=== PATIENT | female | born 1970 | race Caucasian/White ===

== ENCOUNTER 2018-03-24 05:10 | Emergency (ER) | payer BC ==
[~2018-03-24] VITALS: Ht 170.2 cm; Wt 72.0 kg
[2018-03-24 05:13] VITALS: BP 148/89; PULSE 98; RESP 16; TEMP 97.6; O2SAT 100
[2018-03-24] MEDS ORDERED: CLON.5 PO (05:40)
[2018-03-24] MEDS ORDERED: LEVO112T2 PO (05:40)
[2018-03-24] MEDS ORDERED: ADDE15TA PO (05:40)
[2018-03-24] MEDS ORDERED: METO25TA3 PO (05:40)
[2018-03-24] MEDS ORDERED: CYMB60CA PO (05:42)
[2018-03-24] MEDS ORDERED: MONT10TA2 PO (05:42)
[2018-03-24] MEDS ORDERED: LIPI20TA PO (05:42)
--- NOTE | 2018-03-24 06:01 | PD ---
HPI Chief Complaint: Injury Time Seen by Provider: 05:25 Travel History International Travel<30 days: No Contact w/Intl Traveler<30days: No Traveled to known affect area: No History of Present Illness HPI The patient is a 47 year old female who presents to the [facility] emergency department with a history of right-sided upper back pain that she reports began after she fell 2 weeks ago 20 feet off of a ladder. The patient went to a trauma facility regarding her injuries and had CAT scans done the head , neck, thorax, abdomen and pelvis as well as her spine. The patient was diagnosed with a right posterior rib fracture. The patient was discharged home with a prescription for Percocet. She reports that she later developed some right shoulder pain and went back for imaging of the right shoulder which she was told was unremarkable. The patient had Flexeril added to her medication regimen. The patient reports that 3 days ago she had increased pain again in her back that starts in the right side of her thorax and radiates to the right anterior chest. She reports that it is at times worse with taking a deep breath , lifting her arms above her head, or bending forward. The patient is currently visiting the area from [place]. She drove all day to get to [place] for previously scheduled vacation on . The patient reports that she does smoke cigarettes. She reports that she smokes 10 cigarettes per week and also vapes. She denies having any significant shortness of breath other than when she has these intermittent sharp pains which catch her breath. She reports that her rib pain is a 5 out of 10 and constant at baseline and then with the sharp pains that are new since Saturday the pain is 10 out of 10 in severity at times. On review of systems otherwise, the patient denies having any known recent fevers, productive cough, chest congestion, neck pain, abdominal pain, vomiting, diarrhea, urinary symptoms, or neurologic symptoms. [facility] Past Medical History Narrative Medical The patient's past medical history is significant for anxiety and depression, attention deficit disorder, seasonal allergies, diabetes mellitus that managed with diet, hypothyroid disorder, elevated heart rate Past Surgical History Narrative Surgical The patient's past surgical history is significant for hysterectomy, right ankle ORIF. Social History Alcohol Use: Yes (3 times per week) Tobacco Use: Yes (10 cigarettes per week and vapes) Substance Use: No Allergies-Medications (Allergen,Severity, Reaction): Coded Allergies: No Known Allergies (Unverified , 03/24/18) Reported Meds & Prescriptions Reported Meds & Active Scripts Active Reported Cymbalta DR (Duloxetine HCl) 60 Mg Capdr 60 Mg PO DAILY Singulair (Montelukast Sodium) 10 Mg Tab 10 Mg PO HS Lipitor (Atorvastatin Calcium) 20 Mg Tab 20 Mg PO HS Levothyroxine (Levothyroxine Sodium) 112 Mcg Tab 112 Mcg PO DAILY Adderall (Amphetamine-Dextroamphetamine) 15 Mg Tab 30 Mg PO DAILY Avoid late evening doses. Space doses at least 4 to 6 hours if more than once/day dosing. Klonopin (Clonazepam) 0.5 Mg Tab 0.5 Mg PO BID Metoprolol Tartrate 25 Mg Tab 50 Mg PO BID Review of Systems Except as stated in HPI: all other systems reviewed are Neg General / Constitutional: No: Fever Eyes: No: Visual changes HENT: No: Headaches, Congestion Cardiovascular: Positive: Chest Pain or Discomfort, Dyspnea on exertion, No: Diaphoresis, Edema Respiratory: No: Cough, Shortness of Breath Gastrointestinal: No: Nausea, Vomiting, Diarrhea, Abdominal Pain Genitourinary: No: Dysuria Musculoskeletal: Positive: Pain, No: Myalgias Skin: No Rash Neurologic: No: Weakness, Focal Abnormalities, Change in Mentation, Slurred Speech, Sensory Disturbance Psychiatric: No: Depression Endocrine: No: Polydipsia Hematologic/Lymphatic: No: Easy Bruising Physical Exam Narrative General: The patient is a well-developed well-nourished female in no acute distress. Head and Neck exam: Head is normocephalic atraumatic. Eyes: EOMI, pupils are equal round and reactive to light. Nose: Midline septum with pink mucous membranes Mouth: Dentition unremarkable. Moist mucus membranes. Posterior oropharynx is not erythematous. No tonsillar hypertrophy. Uvula midline. Airway patent. Neck: No palpable lymphadenopathy. No nuchal rigidity. No thyromegaly. Cardiovascular: Regular rate and rhythm without murmurs, gallops, or rubs. No pulse deficit to the extremities on simultaneous auscultation and palpation of her radial artery. Lungs: Clear to auscultation bilaterally. No wheezes, rhonchi, or rales. Abdomen: Soft, without tenderness to palpation in all 4 quadrants of the abdomen. No guarding, rebound, or rigidity. Normal bowel sounds are audible. No tenderness on palpation of McBurney's point. Negative Ziegler sign. Extremities: No clubbing, cyanosis, or edema. 2+ pulses in all 4 extremities. No calf tenderness on palpation. Back: No spinous process tenderness to palpation. No step-off or crepitus. No erythema or ecchymosis. The area of interest is the right posterior thorax. The patient reports minimal discomfort on palpation. No crepitus or step-off. No flail segment. No costovertebral angle tenderness to palpation. Neurologic Exam: Grossly nonfocal. Skin Exam: No rash noted. Intact skin that is warm and dry. Data Data Last Documented VS Vital Signs Date Time Temp Pulse Resp B/P (MAP) Pulse Ox O2 Delivery O2 Flow Rate FiO2 03/24/18 05:13 97.6 98 16 148/89 (108) 100 Orders Orders Electrocardiogram (03/24/18 05:40) Complete Blood Count With Diff (03/24/18 05:40) Comprehensive Metabolic Panel (03/24/18 05:40) Creatine Kinase (Cpk) (03/24/18 05:40) Ckmb (Isoenzyme) Profile (03/24/18 05:40) Troponin I (03/24/18 05:40) Prothrombin Time / Inr (Pt) (03/24/18 05:40) Act Partial Throm Time (Ptt) (03/24/18 05:40) Lipase (03/24/18 05:40) D-Dimer (03/24/18 05:40) Iv Access Insert/Monitor (03/24/18 05:40) Ecg Monitoring (03/24/18 05:40) Oximetry (03/24/18 05:40) Ketorolac Inj (Toradol Inj) (03/24/18 06:15) CKMB (03/24/18 05:47) CKMB% (03/24/18 05:47) Sodium Chlor 0.9% 1000 Ml Inj (Ns 1000 M (03/24/18 06:30) Ct Pulmonary Angiogram (03/24/18 06:20) Labs Laboratory Tests Test 03/24/18 05:47 White Blood Count 8.5 TH/MM3 Red Blood Count 4.40 MIL/MM3 Hemoglobin 13.5 GM/DL Hematocrit 40.1 % Mean Corpuscular Volume 91.2 FL Mean Corpuscular Hemoglobin 30.8 PG Mean Corpuscular Hemoglobin Concent 33.8 % Red Cell Distribution Width 14.6 % Platelet Count 273 TH/MM3 Mean Platelet Volume 7.1 FL Neutrophils (%) (Auto) 57.9 % Lymphocytes (%) (Auto) 30.4 % Monocytes (%) (Auto) 9.9 % Eosinophils (%) (Auto) 1.3 % Basophils (%) (Auto) 0.5 % Neutrophils # (Auto) 4.9 TH/MM3 Lymphocytes # (Auto) 2.6 TH/MM3 Monocytes # (Auto) 0.8 TH/MM3 Eosinophils # (Auto) 0.1 TH/MM3 Basophils # (Auto) 0.0 TH/MM3 CBC Comment DIFF FINAL Differential Comment Prothrombin Time 10.5 SEC Prothromb Time International Ratio 1.0 RATIO Activated Partial Thromboplast Time 24.0 SEC D-Dimer Quantitative (PE/DVT) 0.44 MG/L FEU Blood Urea Nitrogen 17 MG/DL Creatinine 0.93 MG/DL Random Glucose 94 MG/DL Total Protein 6.2 GM/DL Albumin 3.4 GM/DL Calcium Level 8.1 MG/DL Alkaline Phosphatase 87 U/L Aspartate Amino Transf (AST/SGOT) 19 U/L Alanine Aminotransferase (ALT/SGPT) 35 U/L Total Bilirubin 0.2 MG/DL Sodium Level 142 MEQ/L Potassium Level 4.1 MEQ/L Chloride Level 107 MEQ/L Carbon Dioxide Level 25.2 MEQ/L Anion Gap 10 MEQ/L Estimat Glomerular Filtration Rate 64 ML/MIN Total Creatine Kinase 123 U/L Creatine Kinase MB 1.7 NG/ML Troponin I LESS THAN 0.02 NG/ML Lipase 127 U/L MDM Medical Decision Making Medical Screen Exam Complete: Yes Emergency Medical Condition: Yes Medical Record Reviewed: Yes Differential Diagnosis Pulmonary embolism, versus pneumonia, versus musculoskeletal strain, versus pneumothorax Narrative Course During the course of the patient's emergency department visit, the patient's history, examination, and differential diagnosis were reviewed with the patient. The patient was placed on a library monitor with oximetry and frequent blood pressure monitoring. The patient had IV access obtained and blood work sent for analysis. The patient had a EKG done on arrival that shows a sinus rhythm heart rate of 93, QRS duration is 93 ms, QTC is [address] segment elevation. T waves are inverted in V1. The patient was initially provided Toradol 15 mg IV for pain and normal saline 1 L IV fluid bolus. The patient's laboratory studies were reviewed and remarkable for white count of 8.5, hemoglobin 13.5, platelets 273 with 9.9 monocytes, CMP is remarkable for GFR of 64, calcium 8.1, cardiac enzymes within normal limits, lipase 127, PT 10.5, PTT 24, d-dimer 0.44 CTA to rule out PE has been ordered due to multiple risk factors including recent injury, tobacco use, prolonged travel. Patient's case was checked out to the oncoming emergency physician to disposition the patient based on the conclusion of her workup. Diagnosis Primary Impression: Chest pain Qualified Codes: R07.9 - Chest pain, unspecified Suzanne Dick MD Mar 24, 2018 06:01
[2018-03-24 06:07] LABS: AUTOMATED NEUTROPHIL # 4.9 TH/MM3 (1.8-7.7); BASOPHIL % 0.5 % (0.0-2.0); EOSINOPHIL # 0.1 TH/MM3 (0-0.4); EOSINOPHIL % 1.3 % (0.0-4.0); HEMATOCRIT 40.1 % (35.0-46.0); HEMOGLOBIN 13.5 GM/DL (11.6-15.3); LYMPH % 30.4 % (9.0-44.0); LYMPHOCYTE # 2.6 TH/MM3 (1.0-4.8); MEAN CELL VOLUME 91.2 FL (80.0-100.0); MEAN CORPUSCULAR HEMOGLOBIN 30.8 PG (27.0-34.0); MEAN CORPUSCULAR HGB CONC 33.8 % (32.0-36.0); MEAN PLATELET VOLUME 7.1 FL (7.0-11.0); MONO % 9.9 % (0.0-8.0); MONOCYTE # 0.8 TH/MM3 (0-0.9); NEUT % 57.9 % (16.0-70.0); PLATELET COUNT 273 TH/MM3 (150-450); RED CELL DISTRIBUTION WIDTH 14.6 % (11.6-17.2); WHITE BLOOD COUNT 8.5 TH/MM3 (4.0-11.0)
[2018-03-24 06:09] LABS: ALBUMIN 3.4 GM/DL (3.4-5.0); AST (GOT) 19 U/L (15-37); BICARBONATE 25.2 MEQ/L (21.0-32.0); BLOOD UREA NITROGEN 17 MG/DL (7-18); CALCIUM 8.1 MG/DL (8.5-10.1); CHLORIDE 107 MEQ/L (98-107); CREATININE 0.93 MG/DL (0.50-1.00); GLOMERULAR FILTRATION RATE 64 ML/MIN (>89); GLUCOSE,RANDOM 94 MG/DL (74-106); SODIUM (NA) 142 MEQ/L (136-145)
[2018-03-24 06:10] LABS: PROTHROMBIN TIME - PATIENT 10.5 SEC (9.8-11.6)
[2018-03-24 06:13] LABS: D-DIMER 0.44 MG/L FEU (0.00-0.50)
[2018-03-24 06:14] LABS: ALKALINE PHOSPHATASE 87 U/L (45-117); ALT (GPT) 35 U/L (10-53); TOTAL BILIRUBIN ADULT 0.2 MG/DL (0.2-1.0); TOTAL PROTEIN 6.2 GM/DL (6.4-8.2); TROPONIN I LESS THAN 0.02 NG/ML (0.02-0.05)
[2018-03-24] MEDS ORDERED: KETOROLAC TROMETHAMINE 30 MG/ML (IVP) VIAL IV PUSH ONE (06:15)
[2018-03-24] MEDS ORDERED: SODIUM CHLOR 0.9% 1000 ML INJ 1,000 ML IV ONE (06:30)
--- NOTE | 2018-03-24 06:56 | PD ---
Physical Exam Date Seen by Provider: Mar 24, 2018 Time Seen by Provider: 06:54 Narrative The patient is a 47-year-old female was initially evaluated by the previous physician, Dr. Dick. Please refer to the initial history, physical, diagnostic evaluation, treatment modality plan. The patient was signed out at [address] pulmonary angiogram pending for right-sided chest pain. Data Data Last Documented VS Vital Signs Date Time Temp Pulse Resp B/P (MAP) Pulse Ox O2 Delivery O2 Flow Rate FiO2 03/24/18 07:43 87 16 146/88 (107) 100 Room Air 03/24/18 05:13 97.6 Orders Orders Electrocardiogram (03/24/18 05:40) Complete Blood Count With Diff (03/24/18 05:40) Comprehensive Metabolic Panel (03/24/18 05:40) Creatine Kinase (Cpk) (03/24/18 05:40) Ckmb (Isoenzyme) Profile (03/24/18 05:40) Troponin I (03/24/18 05:40) Prothrombin Time / Inr (Pt) (03/24/18 05:40) Act Partial Throm Time (Ptt) (03/24/18 05:40) Lipase (03/24/18 05:40) D-Dimer (03/24/18 05:40) Iv Access Insert/Monitor (03/24/18 05:40) Ecg Monitoring (03/24/18 05:40) Oximetry (03/24/18 05:40) Ketorolac Inj (Toradol Inj) (03/24/18 06:15) CKMB (03/24/18 05:47) CKMB% (03/24/18 05:47) Sodium Chlor 0.9% 1000 Ml Inj (Ns 1000 M (03/24/18 06:30) Ct Pulmonary Angiogram (03/24/18 06:20) Iohexol 350 Inj (Omnipaque 350 Inj) (03/24/18 07:45) Labs Laboratory Tests Test 03/24/18 05:47 White Blood Count 8.5 TH/MM3 Red Blood Count 4.40 MIL/MM3 Hemoglobin 13.5 GM/DL Hematocrit 40.1 % Mean Corpuscular Volume 91.2 FL Mean Corpuscular Hemoglobin 30.8 PG Mean Corpuscular Hemoglobin Concent 33.8 % Red Cell Distribution Width 14.6 % Platelet Count 273 TH/MM3 Mean Platelet Volume 7.1 FL Neutrophils (%) (Auto) 57.9 % Lymphocytes (%) (Auto) 30.4 % Monocytes (%) (Auto) 9.9 % Eosinophils (%) (Auto) 1.3 % Basophils (%) (Auto) 0.5 % Neutrophils # (Auto) 4.9 TH/MM3 Lymphocytes # (Auto) 2.6 TH/MM3 Monocytes # (Auto) 0.8 TH/MM3 Eosinophils # (Auto) 0.1 TH/MM3 Basophils # (Auto) 0.0 TH/MM3 CBC Comment DIFF FINAL Differential Comment Prothrombin Time 10.5 SEC Prothromb Time International Ratio 1.0 RATIO Activated Partial Thromboplast Time 24.0 SEC D-Dimer Quantitative (PE/DVT) 0.44 MG/L FEU Blood Urea Nitrogen 17 MG/DL Creatinine 0.93 MG/DL Random Glucose 94 MG/DL Total Protein 6.2 GM/DL Albumin 3.4 GM/DL Calcium Level 8.1 MG/DL Alkaline Phosphatase 87 U/L Aspartate Amino Transf (AST/SGOT) 19 U/L Alanine Aminotransferase (ALT/SGPT) 35 U/L Total Bilirubin 0.2 MG/DL Sodium Level 142 MEQ/L Potassium Level 4.1 MEQ/L Chloride Level 107 MEQ/L Carbon Dioxide Level 25.2 MEQ/L Anion Gap 10 MEQ/L Estimat Glomerular Filtration Rate 64 ML/MIN Total Creatine Kinase 123 U/L Creatine Kinase MB 1.7 NG/ML Troponin I LESS THAN 0.02 NG/ML Lipase 127 U/L [facility] Medical Record Reviewed: Yes Supervised Visit with ANGELES: No Interpretation(s) Laboratory Tests Test 03/24/18 05:47 White Blood Count 8.5 TH/MM3 Red Blood Count 4.40 MIL/MM3 Hemoglobin 13.5 GM/DL Hematocrit 40.1 % Mean Corpuscular Volume 91.2 FL Mean Corpuscular Hemoglobin 30.8 PG Mean Corpuscular Hemoglobin Concent 33.8 % Red Cell Distribution Width 14.6 % Platelet Count 273 TH/MM3 Mean Platelet Volume 7.1 FL Neutrophils (%) (Auto) 57.9 % Lymphocytes (%) (Auto) 30.4 % Monocytes (%) (Auto) 9.9 % Eosinophils (%) (Auto) 1.3 % Basophils (%) (Auto) 0.5 % Neutrophils # (Auto) 4.9 TH/MM3 Lymphocytes # (Auto) 2.6 TH/MM3 Monocytes # (Auto) 0.8 TH/MM3 Eosinophils # (Auto) 0.1 TH/MM3 Basophils # (Auto) 0.0 TH/MM3 CBC Comment DIFF FINAL Differential Comment Prothrombin Time 10.5 SEC Prothromb Time International Ratio 1.0 RATIO Activated Partial Thromboplast Time 24.0 SEC D-Dimer Quantitative (PE/DVT) 0.44 MG/L FEU Blood Urea Nitrogen 17 MG/DL Creatinine 0.93 MG/DL Random Glucose 94 MG/DL Total Protein 6.2 GM/DL Albumin 3.4 GM/DL Calcium Level 8.1 MG/DL Alkaline Phosphatase 87 U/L Aspartate Amino Transf (AST/SGOT) 19 U/L Alanine Aminotransferase (ALT/SGPT) 35 U/L Total Bilirubin 0.2 MG/DL Sodium Level 142 MEQ/L Potassium Level 4.1 MEQ/L Chloride Level 107 MEQ/L Carbon Dioxide Level 25.2 MEQ/L Anion Gap 10 MEQ/L Estimat Glomerular Filtration Rate 64 ML/MIN Total Creatine Kinase 123 U/L Creatine Kinase MB 1.7 NG/ML Troponin I LESS THAN 0.02 NG/ML Lipase 127 U/L Last Impressions CT Angiography 03/24/18 0620 Signed Impressions: CONCLUSION: 1. No CT evidence for pulmonary artery embolism as questioned. 2. Minimal bilateral lower lobe atelectasis. Differential Diagnosis Differential diagnosis includes rib fracture, pleurisy, pulmonary embolism, pleural effusion, pericarditis, myocarditis, costochondritis, shingles. Narrative Course The patient is a 47-year-old female was initially evaluated by the previous physician, Dr. Dick. Please refer to the initial history, physical, diagnostic evaluation, and treatment modality plan. The patient was signed out at [address] pulmonary angiogram pending. The patient's troponin and CPK are unremarkable. The patient CT pulmonary angiogram is negative for PE, does reveal bibasilar atelectasis. I did review the patient's CT, she also had a right-sided rib fracture, no obvious pneumothorax. The patient was administered Toradol [address] Dick. The patient discharged home on anti-inflammatories and tramadol as needed. She is advised to follow- up with her primary physician. Diagnosis Primary Impression: Right-sided chest pain Additional Impression: Rib fracture Qualified Codes: S22.31XA - Fracture of one rib, right side, initial encounter for closed fracture Patient Instructions: General Instructions Additional Instruction: Please provide the patient a copy of her CT results and lab results at discharge. Medications as directed. Follow-up with your primary physician. Return if symptoms worsen or progress. Med/Other Pt SpecificInfo: Prescription(s) given Scripts Tramadol (Tramadol) 50 Mg Tab 50 MG PO Q6H Y for PAIN, #12 TAB 0 Refills Prov: Oscar Barker MD 03/24/18 Ibuprofen (Ibuprofen) 600 Mg Tab 600 MG PO Q6H Y for Pain/Inflammation, #20 TAB 0 Refills Prov: Oscar Barker MD 03/24/18 Disposition: 01 DISCHARGE HOME Condition: Stable Oscar Barker MD Mar 24, 2018 06:56
[2018-03-24 07:43] VITALS: BP 146/88; PULSE 87; RESP 16; O2SAT 100
[2018-03-24] MEDS ORDERED: IOHEXOL 350 MG/ML 10 ML VIAL (for RAD DIAG) IVCONTRAST ONE (07:45)
--- NOTE | 2018-03-24 07:50 | RADRPT ---
EXAM DATE: 03/24/2018 7:43 AM EDT AGE/SEX: 47 years / Female INDICATIONS: Right sided chest pain after rib fracture two weeks ago, shortness of breath. CLINICAL DATA: This is the patient's initial encounter. Patient reports that signs and symptoms have been present for 3 days and indicates a pain score of 10/10. MEDICAL/SURGICAL HISTORY: . Right posterior rib fracture, thyroid disease. None. RADIATION DOSE: 10.72 CTDI (mGy) COMPARISON: No prior exams available for comparison. TECHNIQUE: Volumetric scanning was performed using a multi-row detector CT scanner during bolus infu randi of 75 ml Omnipaque 350 (iohexol) nonionic water-soluble contrast as a single exam dose. The marcellus a was post processed with a variety of visualization algorithms including full volume maximum intensi ty projection and sliding thin slab reformation. Using automated exposure control and adjustment of the mA and/or kV according to patient size, radiation dose was kept as low as reasonably achievable t o obtain optimal diagnostic quality images. DICOM format image data is available electronically for review and comparison. FINDINGS: Pulmonary Arteries: No filling defects are seen in the pulmonary arteries through the segmental vess els. The main pulmonary artery is normal in diameter. Lung: Minimal posterior bilateral lower lobe groundglass opacities likely reflecting atelectasis. Pleura: No effusion, significant pleural thickening or pneumothorax. Mediastinum: Heart is normal in appearance without significant pericardial effusion. Subcentimeter m ediastinal nodes do not meet CT size criteria. Similarly, subcentimeter axillary nodes are likely sugn ctive. Osseous Structures: No abnormal focal lytic or blastic bony lesions. Other: Visulaized upper abdomen is unremarkable. CONCLUSION: 1. No CT evidence for pulmonary artery embolism as questioned. 2. Minimal bilateral lower lobe atelectasis. Electronically signed by: Simone Pruitt MD 03/24/2018 7:48 AM EDT
[2018-03-24] MEDS ORDERED: TRAM50TA PO (07:56)
[2018-03-24] MEDS ORDERED: IBUP-232 PO (07:56)
--- NOTE | 2018-03-24 22:47 | EKG ---
Date Performed: 03/24/2018 Time Performed: 05:53:28 PTAGE: 47 years EKG: Sinus rhythm NORMAL ECG NO PREVIOUS TRACING DOCTOR: Jovanni Warenr Interpretating Date/Time 03/24/2018 22:44:58
== END 2018-03-24 08:26 | disposition home or self-care (01) ==
LOC: NEPC 05:10
DX: R07.89 Other chest pain (principal); S22.31XA Fracture of one rib, right side, initial encounter for closed fracture; E03.9 Hypothyroidism, unspecified; F32.9 Major depressive disorder, single episode, unspecified; F17.210 Nicotine dependence, cigarettes, uncomplicated; W11.XXXA Fall on and from ladder, initial encounter
CPT/HCPCS: 71275; 80053; 82550; 82552; 83690; 84484; 85025; 85379; 85610; 85730; 93005; 96361; 96374; 99285; J1885; J7030; Q9967